=== PATIENT | male | born 1945 | race Caucasian/White ===

== ENCOUNTER 2021-12-11 12:18 | Emergency (ER) | payer OTHER, MEDICARE ==
[~2021-12-11] VITALS: Ht 182.9 cm; Wt 70.0 kg
[~2021-12-11 12:18] MED LIST: LORTAB5 PO; TAMSULOSIN0.4 MG PO; XANAX1 MG PO; ZITHROMAX250 MG PO
[2021-12-11 14:00] VITALS: BP 150/80
== END 2021-12-11 16:55 | disposition home or self-care (01) | DRG 552 ==
LOC: ED 12:18
DX: S33.5XXA Sprain of ligaments of lumbar spine, initial encounter (principal); S23.3XXA Sprain of ligaments of thoracic spine, initial encounter; Y04.2XXA Assault by strike against or bumped into by another person, initial encounter